=== PATIENT | female | born 1990 | race Caucasian/White ===

== ENCOUNTER → 2019-02-17 | Outpatient (CLI) | payer OTHER ==
--- NOTE | 2019-02-17 14:32 | REP ---
Clinical: Pain. Childbirth. Technique: AP, lateral views of the lumbosacral spine. Findings: No obvious acute fracture or subluxation although very minimal anterolisthesis at the L5-S1 level cannot be excluded and may be related to chronic / congenital spondylolysis. Remainder examination is normal. Impression: Cannot exclude minimal grade 1 anterolisthesis at L5-S1. Electronically Signed by Gonzalez Johns MD 02/17/2019 02:24 P
--- NOTE | 2019-02-17 14:32 | REP ---
Clinical: Pain. Childbirth. Technique: Three views of the sacrum and coccyx. Findings: Sacrum and coccyx including bilateral sacroiliac joints appear normal. Impression: Normal examination. Electronically Signed by Gonzalez Johns MD 02/17/2019 02:24 P
--- NOTE | 2019-02-17 14:33 | REP ---
Clinical: thoracic pain. Childbirth. Technique: AP, lateral views of the thoracic spine. Findings: Alignment and kyphosis is maintained. Vertebral bodies intact. No acute fracture / compression injury or subluxation. No degenerative changes. Paravertebral soft tissues are normal. Impression: Normal thoracic spine series. Electronically Signed by Gonzalez Johns MD 02/17/2019 02:25 P
--- NOTE | 2019-02-17 14:33 | REP ---
Clinical: Pain. Childbirth. Technique: AP and lateral views of the cervical spine. Findings: Alignment and lordosis maintained. No acute fracture / compression injury or subluxation. No significant abnormality appreciated. Impression: Normal cervical spine radiographs. Electronically Signed by Gonzalez Johns MD 02/17/2019 02:25 P
== END ==
LOC: M RAD 12:10
PROVIDERS: ATTEND Chiropractor
DX: M51.37 Other intervertebral disc degeneration, lumbosacral region (principal); M99.03 Segmental and somatic dysfunction of lumbar region; M51.34 Other intervertebral disc degeneration, thoracic region; M99.02 Segmental and somatic dysfunction of thoracic region